=== PATIENT | female | born 1945 | race Caucasian/White ===

== ENCOUNTER 2024-06-17 11:49 | Emergency (ER) | payer MEDICARE, OTHER ==
[~2024-06-17] VITALS: Ht 144.8 cm; Wt 76.7 kg
[2024-06-17] MEDS ORDERED: LACTATED RINGER'S 1,000 ML IV ONE (12:00)
[2024-06-17 12:05] LABS: BASOPHILS 0.7 % (0-2); HEMATOCRIT 40.7 % (35.0-50.0); HEMOGLOBIN 13.7 g/dL (12.0-18.0); LYMPHOCYTES 17.4 % (24-44); MCH 29.4 (27-36); MCHC 33.6 g/dl (30-36); MCV 87.3 fl (81-99); MONOCYTES 14.5 % (0-12); NEUTROPHILS 64.4 % (39-80); PLATELET COUNT 182 K/uL (140-440); RBC 4.66 M/ul (4.3-5.7); RDW 15.5 (10.5-15.0)
[2024-06-17] MEDS ORDERED: CLOPIDOGREL75 MG PO (12:20)
[2024-06-17] MEDS ORDERED: LIPITOR80 MG PO (12:20)
[2024-06-17] MEDS ORDERED: AMIODARONE HCL100 MG PO (12:20)
[2024-06-17 12:21] LABS: ALBUMIN 3.4 g/dL (3.4-5.0); ALBUMIN/GLOBULIN RATIO 0.89 (1.1-2.4); ALCOHOL, MEDICAL <3 ng/dL (<3); ALKALINE PHOSPHATASE 75 U/L (46-116); ALT (SGPT) 27 U/L (14-59); ANION GAP 14.1 (7-21); AST (SGOT) 20 U/L (15-37); BILIRUBIN, TOTAL 0.6 ng/dL (0.2-1.0); BUN/CREATININE RATIO 27.27 (6.0-28.6); CALCIUM 8.8 mg/dL (8.5-10.1); CARBON DIOXIDE 27 mmol/L (21-32); CHLORIDE 101 mmol/L (98-107); CREATINE KINASE 96 U/L (26-192); CREATININE, SERUM 0.66 mg/dL (0.55-1.02); GLOMERULAR FILTRATION RATE,EST 90 mL/min (>60); POTASSIUM 4.1 mmol/L (3.5-5.1); PROTEIN, TOTAL 7.2 g/dL (6.4-8.2); UREA NITROGEN 18 mg/dL (7-18)
[2024-06-17] MEDS ORDERED: ISOSORBIDE MONO60 MG PO (12:21)
[2024-06-17] MEDS ORDERED: ZESTRIL10 MG PO (12:21)
[2024-06-17] MEDS ORDERED: EZETIMIBE10 MG PO (12:21)
[2024-06-17] MEDS ORDERED: COQMAX UBIQUIN100 MG PO (12:21)
[2024-06-17] MEDS ORDERED: LEVOTHYROXINE88 MC1 PO (12:21)
[2024-06-17] MEDS ORDERED: PROTONIX20 MG PO (12:22)
[2024-06-17] MEDS ORDERED: DAILY VALUE1 EACH PO (12:22)
[2024-06-17] MEDS ORDERED: SINGULAIR10 MG PO (12:22)
[2024-06-17] MEDS ORDERED: MAGNESIUM400 MG PO (12:22)
[2024-06-17] MEDS ORDERED: VOLTAREN ARTHRI20 GM TP (12:23)
[2024-06-17] MEDS ORDERED: ZOLOFT50 MG PO (12:23)
[2024-06-17] MEDS ORDERED: K-TAB ER20 MEQ PO (12:23)
[2024-06-17] MEDS ORDERED: VITAMIN E400 UNI1 PO (12:23)
[2024-06-17] MEDS ORDERED: HYDROCODON-ACE1 EA10 PO (12:24)
[2024-06-17] MEDS ORDERED: VENTOLIN HFA18 GM INH (12:24)
[2024-06-17] MEDS ORDERED: NARCAN4 MG NS (12:24)
[2024-06-17] MEDS ORDERED: NITROSTAT0.4 MG SL (12:24)
[2024-06-17] MEDS ORDERED: TYLENOL325 MG PO (12:25)
[2024-06-17] MEDS ORDERED: MIRALAX119 GM PO (12:25)
[2024-06-17 12:40] LABS: ABO AB; RH POSITIVE
[2024-06-17 12:41] LABS: ANTIBODY SCREEN NEGATIVE
[2024-06-17 13:07] LABS: BILIRUBIN, URINE NEGATIVE (negative); BLOOD/HGB, URINE NEGATIVE (Negative); KETONE, URINE NEGATIVE (Negative); LEUK ESTERASE, URINE NEGATIVE (negative); NITRITE, URINE NEGATIVE (negative)
[2024-06-17 13:26] LABS: AMPHETAMINES, URINE NEGATIVE (NEGATIVE); BARBITURATES, URINE NEGATIVE (NEGATIVE); BENZODIAZEPINE, URINE NEGATIVE (NEGATIVE); BUPRENORPHINE, URINE NEGATIVE (NEGATIVE); CANNABINOID, URINE NEGATIVE (NEGATIVE); COCAINE, URINE NEGATIVE (NEGATIVE); ECSTASY, URINE NEGATIVE (NEGATIVE); FENTANYL, URINE NEGATIVE (NEGATIVE); METHADONE, URINE NEGATIVE (NEGATIVE); OPIATES, URINE NEGATIVE (NEGATIVE); OXYCODONE, URINE NEGATIVE (NEGATIVE); PHENCYCLIDINE, URINE NEGATIVE (NEGATIVE)
[2024-06-17 15:45] VITALS: BP 150/91
== END 2024-06-17 15:45 | disposition home or self-care (01) ==
LOC: ED 11:49
PROVIDERS: Emergency Medicine
DX: S00.03XA Contusion of scalp, initial encounter (principal); W06.XXXA Fall from bed, initial encounter; F03.90 Unspecified dementia, unspecified severity, without behavioral disturbance, psychotic disturbance, mood disturbance, and anxiety; Z79.02 Long term (current) use of antithrombotics/antiplatelets; Z88.0 Allergy status to penicillin; Z88.2 Allergy status to sulfonamides; Z88.1 Allergy status to other antibiotic agents; Z88.5 Allergy status to narcotic agent; Z91.040 Latex allergy status; Z88.8 Allergy status to other drugs, medicaments and biological substances; Z91.048 Other nonmedicinal substance allergy status; Z79.899 Other long term (current) drug therapy; Z79.890 Hormone replacement therapy
CPT/HCPCS: 36415; 70450; 72125; 80053; 80307; 81003; 82553; 85025; 86850; 86900; 86901; 99284-25; G0480; J7121